=== PATIENT | male | born 1980 | race African-American/Black ===

== ENCOUNTER 2024-01-15 11:26 | Emergency (ER) | payer SELFPAY ==
[2024-01-15 11:36] VITALS: RESP 18; TEMP 98.6; BMI 35.9
[2024-01-15 12:36] LABS: BASO % 0.4 % (0-2.0); EOS % 2.1 % (0-4.5); HEMOGLOBIN 16.2 GM/dL (11.7-16.9); LYMPH % 46.1 % (8-40); MCH 24.9 pg (25.7-33.7); MCHC 32.4 g/dl (32.0-35.9); MEAN CELL VOLUME 76.8 fl (80-96); MEAN PLT VOLUME 9.1 fl (7.5-11.1); MONO % 8.2 % (3.8-10.2); NEUT % 43.2 % (42.8-82.8); PLATELET COUNT 142 10^3/uL (134-434); RBC 6.52 M/mm3 (4.00-5.60); RDW 15.2 % (11.9-15.9); WHITE BLOOD COUNT 7.1 K/mm3 (4.0-10.0)
[2024-01-15 13:00] LABS: POTASSIUM 4.2 mmol/L (3.5-5.1)
[2024-01-15] MEDS ORDERED: ASPIRIN 81 MG CHEWABLE TABLETS ONE (13:02)
[2024-01-15] MEDS ORDERED: ACETAMINOPHEN INJECTION 100 ML ONE (13:02)
[2024-01-15 13:03] LABS: ALBUMIN 3.9 g/dl (3.4-5.0); BLOOD UREA NITROGEN 11.1 mg/dL (7-18); CALCIUM 9.7 mg/dL (8.5-10.1)
[2024-01-15 13:06] LABS: CREATININE 0.8 mg/dL (0.55-1.3)
[2024-01-15] MEDS: ACETAMINOPHEN 1000 MG/100 ML BAG IVPB ONE (13:07)
[2024-01-15] MEDS: ASPIRIN 81 MG CHEWABLE TABLETS PO ONE (13:07)
[2024-01-15 13:08] LABS: BILIRUBIN,TOTAL 0.5 mg/dL (0.2-1); TOT PROT 8.1 g/dl (6.4-8.2)
[2024-01-15 13:24] VITALS: BP 153/90; PULSE 80
[2024-01-15] MEDS ORDERED: amLODIPine BESYLATE 10 MG TABLET (FP) ONE (14:32)
[2024-01-15] MEDS: amLODIPine BESYLATE 10 MG TABLET (FP) PO ONE (14:34)
[2024-01-15 18:13] LABS: HIV INTERPRETATION NEGATIVE (NEGATIVE)
== END 2024-01-15 14:35 | disposition home or self-care (01) ==
LOC: JER 11:26
PROC: 3E033NZ Introduction of Analgesics, Hypnotics, Sedatives into Peripheral Vein, Percutaneous Approach (ICD-10-PCS; principal; 2024-01-15)
DX: R07.2 Precordial pain (principal); R06.02 Shortness of breath
CPT/HCPCS: 36415; 71046-TC-FY; 80053; 84484; 85025; 86803; 87389; 93005; 93010; 99285-25; J0131